=== PATIENT | male | born 1960 | race Two or more races ===

== ENCOUNTER 2018-01-09 03:32 | Inpatient (IN) | payer OTHER ==
[2018-01-08 20:00] VITALS: BP 138/71
[~2018-01-09] VITALS: Ht 165.1 cm; Wt 103.4 kg
--- NOTE | 2018-01-09 04:40 | NUR ---
RN M/S NOTE RECEIVED PATIENT FROM [facility], AOX3, SPEECH CLEAR, DENIES ANY RESPIRATORY OR CARDIAC DISTRESS. NPO, SKIN IS INTACT, RAC #18G PATENT FLUSHES WELL, SITE CDI. D5 1/2NS AT 75 ML/HR, TOLERATING WELL. BRP, INSTRUCTED SWITCHING OPERATOR LIGHT USE, SAFETY MAINTAINED AT ALL TIMES, BED IN LOCKED POSITION. WILL CONTINUE TO MONITOR FOR ANY CHANGES IN CONDITION.
[2018-01-09 04:58] VITALS: BP 123/72
[2018-01-09] MEDS ORDERED: MORPHINE SULFATE INJ 2 MG/ML DISP.SYRIN IV PRN (05:00)
[2018-01-09] MEDS ORDERED: ACETAMINOPHEN 325 MG TABLET PO PRN (05:00)
[2018-01-09] MEDS ORDERED: Z GUARD REMEDY 2 OZ OINT TP PRN (05:00)
[2018-01-09] MEDS ORDERED: ONDANSETRON HCL/PF 4 MG/2 ML VIAL IVP PRN (05:00)
[2018-01-09] MEDS: IV D5/0.45 NACL 1,000 ML IV SCH ×2 (05:31→18:49)
[2018-01-09 06:51] LABS: BASOPHILS # (AUTO) 0.1 /CMM (0.0-0.2); BASOPHILS % (AUTO) 0.8 % (0.0-2.0); EOSINOPHILS % (AUTO) 3.1 % (0.0-6.0); HEMATOCRIT 39 % (39-51); HEMOGLOBIN 13.4 g/dL (13.5-17.5); LYMPHOCYTES % (AUTO) 31.9 % (20.0-44.0); MEAN CORPUSCULAR HGB CONC 34 g/dl (31.0-36.0); MEAN CORPUSCULAR VOLUME 88 fL (80-96); MONOCYTES # (AUTO) 0.9 /CMM (0.1-1.30); MONOCYTES % (AUTO) 9.5 % (2.0-12.0); NEUTROPHILS # (AUTO) 5.1 /CMM (1.8-8.9); NEUTROPHILS % (AUTO) 54.7 % (43.0-81.0); PLATELET COUNT (AUTO) 200 /CMM (150-450); RDW COEFFICIENT OF VARIATION 13.4 (11.5-15.0); RED BLOOD CELL COUNT(AUTO) 4.43 MIL/uL (4.5-6.0); WHITE BLOOD COUNT (AUTO) 9.3 K/uL (4.3-11.0)
[2018-01-09 06:53] LABS: CALCIUM, SERUM 8.4 mg/dL (8.5-10.1); POTASSIUM 3.7 mmol/L (3.5-5.1)
--- NOTE | 2018-01-09 07:12 | NUR ---
RN INITIAL NOTES: REC'D PT ASLEEP ON BED, NOT IN ANY DISTRESS, A/O X 4, DENIES PAIN/DISCOMFORT AT THIS TIME. ON ROOM AIR, NO SOB. HAS IV LINE ACCESS: R AC G20 PL, PATENT & INTACT W/ NO S/SX OF INFECTION/INFILTRATION NOTED, W/ D5 1/2 NS X 75 CC/HR INFUSING WELL. PT ON NPO D/T DX. PROVIDED COMFORT & SAFETY MEASURES. BED KEPT LOW & IN LOCKED POS. CALL LIGHT PLACED W/IN REACH. WILL CONTINUE TO MONITOR & ATTEND PT NEEDS.
[2018-01-09 08:00] VITALS: BP 127/72
[2018-01-09] MEDS: PANTOPRAZOLE 40 MG VIAL IV SCH (08:21)
[2018-01-09] MEDS ORDERED: IOHEXOL-300 100 ML VIAL IV ONE (09:35)
[2018-01-09] MEDS ORDERED: CT SWABBABLE VALVE TRANS SET 1 EA INFUS.SET MC ONE (09:35)
[2018-01-09] MEDS ORDERED: IV NS 0.9% 250 ML IV ONE (09:36)
[2018-01-09 10:41] LABS: APPEARANCE,URINE CLEAR (CLEAR); BILIRUBIN,URINE NEGATIVE (NEGATIVE); BLOOD, URINE NEGATIVE Ery/uL (NEGATIVE); COLOR,URINE YELLOW (YELLOW); KETONES,URINE NEGATIVE (NEGATIVE); LEUKOCYTE ESTERASE ,URINE NEGATIVE (NEGATIVE); NITRITE, URINE NEGATIVE (NEGATIVE); PROTEIN,URINE NEGATIVE (NEGATIVE); UGLUCOSE NEGATIVE (NEGATIVE); UROBILINOGEN,URINE 0.2 EU/dL (0.2)
--- NOTE | 2018-01-09 11:30 | NUR ---
RN NOTES: TRUNG CORREIA INFORMED ABOUT GI CONSULT. PER GAS MASK ASSEMBLER, IT'S UNDER DR. MARLOW. DR. MARLOW MADE AWARE, HE SAID HE WILL SEE PT TODAY (PM). PT & FAMILY MADE AWARE.
--- NOTE | 2018-01-09 11:30 | NUR ---
RN NOTES: PT SEEN & EXAMINED BY TRUNG ARREAGA W/ ORDERS MAY START CLEAR LIQUID DIET FOR NOW.
[2018-01-09 16:00] VITALS: BP 128/80
--- NOTE | 2018-01-09 17:00 | NUR ---
RN NOTES: PT SEEN & EXAMINED BY DR. MARLOW W/ FF ORDERS: - PLS SECURE CONSENT FOR EGD/COLONOSCOPY. - GIVE MG CITRATE 8 OZ PO X1 NOW THEN AFTER 4 HOURS GIVE ANOTHER MG CITRATE 8 OZ PO X1. GIVE ALSO 20 MG OF BISACODYL PO. - KEEP CLEAR LIQUID DIET. NPO POST MN. WAS ABLE TO SPEAK W/ NRSG SUP JARON BUT UNSURE IF PROCEDURE WILL BE DONE TOMORROW OR MONDAY. MD TO CALL RN TO GIVE SCHEDULE OF THE PROCEDURE. PER , IF PROCEDURE IS SCHED AMANDA, GIVE GOLYTELY TONIGHT & KEEP PT NPO POST MN. IF SCHED ON , HOLD GOLYTELY BUT GIVE THE REST OF THE MEDS. PER NRSG SUP JARON, PROCEDURE IS SCHEDULE ON MONDAY. PT & MADE AWARE.
[2018-01-09] MEDS ORDERED: PEG 3350/NA SULF,BICARB,CL/KCL 4,000 ML BOTTLE PO ONE (17:30)
[2018-01-09] MEDS ORDERED: BISACODYL (5 MG) 5 MG TABLET.DR PO ONE (17:30)
[2018-01-09] MEDS ORDERED: MAGNESIUM CITRATE 296 ML BOTTLE PO ONE ×2 (17:30→21:30)
--- NOTE | 2018-01-09 19:00 | NUR ---
RN CLOSING NOTES: NO ACUTE CHANGES NOTED W/IN SHIFT. PT KEPT COMFORTABLE & WELL RESTED. NEEDS ATTENDED. IV LINE ON R AC G20 KEPT PATENT & INTACT W/ NO S/SX OF INFECTION/INFILTRATION NOTED, STILL ON D5 1/2 NS X 75 CC/HR INFUSING WELL. DR. MARLOW MADE AWARE THAT EGD/COLONOSCOPY IS SCHED ON TH. INFORMED HIM THAT MG CITRATE & BISACODYL ALREADY GIVEN. AGREED TO SCHED GOLYTELY AND 2ND BOTTLE OF MG CITRATE TOMORROW AT 4PM. KEEP PT ON CLEAR LIQUID DIET FOR NOW. PT MADE AWARE, CONSENT SIGNED AND PLACED IN THE CHART. ENDORSED TO PM RN FOR AMRKI.
[2018-01-09 19:59] LABS: OCCULT BLOOD STOOL POSITIVE (NEGATIVE)
[2018-01-09 20:51] VITALS: BP 147/89
[2018-01-10] VITALS: BP 138/71
[2018-01-10 04:00] VITALS: BP_SYST 112; BP_SYST 114; BP_SYST 138; BP_DIAS 71
[2018-01-10 06:26] LABS: BASOPHILS # (AUTO) 0.1 /CMM (0.0-0.2); BASOPHILS % (AUTO) 0.6 % (0.0-2.0); EOSINOPHILS % (AUTO) 4.3 % (0.0-6.0); HEMATOCRIT 40 % (39-51); HEMOGLOBIN 13.8 g/dL (13.5-17.5); LYMPHOCYTES # (AUTO) 2.4 /CMM (0.8-4.8); LYMPHOCYTES % (AUTO) 25.8 % (20.0-44.0); MEAN CORPUSCULAR HGB CONC 35 g/dl (31.0-36.0); MEAN CORPUSCULAR VOLUME 88 fL (80-96); MONOCYTES # (AUTO) 0.8 /CMM (0.1-1.30); MONOCYTES % (AUTO) 8.8 % (2.0-12.0); NEUTROPHILS # (AUTO) 5.7 /CMM (1.8-8.9); NEUTROPHILS % (AUTO) 60.5 % (43.0-81.0); PLATELET COUNT (AUTO) 208 /CMM (150-450); RDW COEFFICIENT OF VARIATION 12.7 (11.5-15.0); RED BLOOD CELL COUNT(AUTO) 4.52 MIL/uL (4.5-6.0); WHITE BLOOD COUNT (AUTO) 9.4 K/uL (4.3-11.0)
[2018-01-10 06:46] LABS: THYROID STIMULATING HORMONE 1.454 uIU/mL (0.358-3.74)
[2018-01-10] MEDS: IV D5/0.45 NACL 1,000 ML IV SCH ×2 (07:14→20:47)
--- NOTE | 2018-01-10 07:50 | NUR ---
MS RN OPENING NOTE PATIENT IS ALERT AND ORIENTED x3. NO PAIN NOTED. NO SOB OR DISTRESS NOTED. CALL LIGHT WITHIN REACH. SAFETY MEASURES IMPLEMENTED. ABLE TO COMMUNICATE NEEDS. IV INTACT AND PATENT NO REDNESS OR SWELLING NOTED, IV FLUIDS RUNNING AT THIS TIME AT 75 ML/HR TOLERATING WELL. WILL HAVE EGD/COLONOSCOPY TOMORROW 01/11 TO BE NPO AT MIDNIGHT AND BOWEL PREP TO BE STARTED TODAY. WILL CONTINUE TO MONITOR THROUGHOUT SHIFT
[2018-01-10 08:00] VITALS: BP 117/56
[2018-01-10] MEDS: PANTOPRAZOLE 40 MG VIAL IV SCH (08:55)
[2018-01-10 09:39] LABS: CALCIUM, SERUM 8.7 mg/dL (8.5-10.1); MAGNESIUM 2.2 mg/dL (1.8-2.4); PHOSPHORUS 3.7 mg/dL (2.5-4.9)
[2018-01-10 09:43] LABS: POTASSIUM 4.2 mmol/L (3.5-5.1)
[2018-01-10 12:00] VITALS: BP 142/82
[2018-01-10 16:00] VITALS: BP 133/65
[2018-01-10] MEDS ORDERED: MAGNESIUM CITRATE 296 ML BOTTLE PO ONE (16:00)
[2018-01-10] MEDS ORDERED: PEG 3350/NA SULF,BICARB,CL/KCL 4,000 ML BOTTLE PO ONE (16:00)
--- NOTE | 2018-01-10 18:38 | NUR ---
MS RN CLOSING NOTE PATIENT IS RESTING COMFORTABLY SITTING IN CHAIR. NO PAIN AT THIS TIME. NO SOB OR DISTRESS NOTED. CALL LIGHT WITHIN REACH AT ALL TIMES. SAFETY MEASURES IMPLEMENTED. ABLE TO COMMUNICATE NEEDS. TO BE NPO AT MIDNIGHT FOR EGD/COLONOSCOPY, CONSENTS OBTAINED AND PLACED IN CHART. PATIENT CURRENTLY DRINKING GOLYTELY AT THIS TIME. IV INTACT AND PATENT AND IV FLUIDS RUNNING AT THIS TIME TOLERATING WELL. WILL ENDORSE TO MANAGER PHP NURSE FOR AMRIK
--- NOTE | 2018-01-10 19:40 | NUR ---
RN INITIAL NOTES: RECEIVED REPORT FROM DAY HANNA WALTERS, PT A/O X4 DENIES ANY PAIN OR DISCOMFORT AT THIS TIME, PT ON BOWEL PREP CURRENTLY DRINKING GOLYTELY, IV ACCESS PATENT AND FLUSHING WELL, WITH ONGOING IVF INFUSING. PT FOR EGD AND COLONOSCOPY IN AM, CONSENT SECURED BY DAY RN. PT AWARE HE WILL BE NPO P MN. SAFETY PRECAUTIONS FOR FALL INITIATED CALL LIGHT IN REACH, WILL CONTINUE TO MONITOR
[2018-01-10 20:00] VITALS: BP 132/71
[2018-01-11 04:00] VITALS: BP 112/70
[2018-01-11] MEDS: IV D5/0.45 NACL 1,000 ML IV SCH (06:27)
--- NOTE | 2018-01-11 06:39 | NUR ---
RN CLOSING NOTES: PT IN BED, AWAKE, DENIES ANY PAIN OR DISCOMFORT AT THIS TIME, REMAINS NPO FOR EGD COLONOSCOPY TODAY, CONSENT AND CHECKLIST AVAILABLE AT CHART, IV ACCESS REMAINS PATENT AND FLUSHING WELL, INFUSING WITH D5 1/2NS AT 75ML/HR. BM NOW CLEAR, NO RESIDUE NOTED, BUT STILL YELLOWISH COLOR. PT NOT IN THE SCHEDULE FOR PROCEDURE TODAY HOWEVER PER SPEECH THERAPIST TECHNICIAN SHE TALKED TO NURSING SUP AND PER NURSING SUP, IN OR THEY MIGHT TRY TO "SQUEEZE HIM IN". WILL ENDORSE TO DAY RN TO PLEASE KINDLY FOLLOW UP WITH OR WHAT TIME WILL THE PT HAVE PROCEDURE BECAUSE ITS HIS 2ND DAY OF WAITING AND HAVING 2 BOWEL PREP DONE.. VS REMAINS STABLE, NEEDS ATTENDED. WILL ENDORSE TO DAY RN FOR AMRIK.
--- NOTE | 2018-01-11 06:51 | NUR ---
CONTACTED OR: CONTACTED OR RELAYED SITUATION ABOUT PT SCHEDULE FOR PROCEDURE, PER OR TECH HE STATED THAT DR MARLOW CALLED LAST NIGHT TO ADD THE PT ON THE CASE TODAY, PER OR TECH THAT THEY WILL ADD PT TO THE SCHEDULE TODAY AND WE'LL KEEP US UPDATED
--- NOTE | 2018-01-11 07:15 | NUR ---
MSRN OPENING NOTES. PT RECEIVED A&0X3, AWAKE AND RESTING. PT NPO R/T: GI INVESTIGATIONS. PT TOLERATING ROOM AIR WITHOUT SOB OR RESP DISTRESS. PT DENIES PAIN. PT REPORTS SMALL BMX1 THIS AM, BM ALL CLEAR LIQUID AND WITHOUT BLOOD. PT WITH IVC AT R FA G#20 INTACT AND OPERATIONAL. PT ENDORSED TO HAVE PROCEDURE TODAY, OR TO UPDATE WITH TIME ON SCHEDULE. PT BED IN LOWEST LOCKED POSITION WITH [id number] AND CALL HER WITHIN REACH. PT BRIEFED ON TODAY'S POC AND IS WITHOUT CONCERN OR COMPLAINT AT THIS TIME.
[2018-01-11 07:20] LABS: BASOPHILS # (AUTO) 0.1 /CMM (0.0-0.2); BASOPHILS % (AUTO) 0.6 % (0.0-2.0); EOSINOPHILS % (AUTO) 3.2 % (0.0-6.0); HEMATOCRIT 38 % (39-51); HEMOGLOBIN 13.3 g/dL (13.5-17.5); LYMPHOCYTES # (AUTO) 2.4 /CMM (0.8-4.8); LYMPHOCYTES % (AUTO) 26.4 % (20.0-44.0); MEAN CORPUSCULAR HGB CONC 35 g/dl (31.0-36.0); MEAN CORPUSCULAR VOLUME 87 fL (80-96); MONOCYTES # (AUTO) 0.9 /CMM (0.1-1.30); MONOCYTES % (AUTO) 9.4 % (2.0-12.0); NEUTROPHILS # (AUTO) 5.6 /CMM (1.8-8.9); NEUTROPHILS % (AUTO) 60.4 % (43.0-81.0); PLATELET COUNT (AUTO) 204 /CMM (150-450); RDW COEFFICIENT OF VARIATION 12.5 (11.5-15.0); RED BLOOD CELL COUNT(AUTO) 4.39 MIL/uL (4.5-6.0); WHITE BLOOD COUNT (AUTO) 9.3 K/uL (4.3-11.0)
[2018-01-11 07:26] LABS: INR 0.96 (0.87-1.13)
[2018-01-11] MEDS: PANTOPRAZOLE 40 MG VIAL IV SCH (08:46)
--- NOTE | 2018-01-11 11:00 | NUR ---
MSRN NOTES. PT TO OR FOR UPPER AND LOWER GI ENDOSCOPY.
[2018-01-11 12:00] VITALS: BP 120/75
--- NOTE | 2018-01-11 12:00 | NUR ---
MSRN NOTES. PT RETURNED A&0X3, TOLERATING ROOM AIR WITHOUT PAIN. VITALS Q15, WNL AT THIS TIME. MD ORDERS REVIEWED AND PLACED.
--- NOTE | 2018-01-11 16:30 | NUR ---
MSRN D/C NOTES. PT PREPARED FOR D/C PER MD. PT TOLERATING ROOM AIR WITHOUT RESPIRATORY DISTREE. PT DENIES PAIN. PT IVC REMOVED AND NAD AT SITE. PT WITH ALL BELONGINGS AND DOCUMENT SIGNED. PT BRIEFED ON SOH D/C PACKET, MEDICATIONS/SCRIPTS AND FOLLOW UPS WITH NUMBERS PROVIDED. PT VERBALIZING UNDERSTANDING, RESOURCES AND INTENT TO FOLLOW POC. PT ROOM CHECK AGAIN FOR BELONGINGS PRIOR TO EXIT. PT WITHOUT CONCERN OR COMPLAINT AT THIS TIME. AMBULATORY EXIT WITH FAMILY FOR TRANSPORT.
== END 2018-01-11 16:33 | disposition home or self-care (01) | DRG 241 ==
LOC: TELE-TD 04:34 → TELE1 04:56 → MEDSG1 06:04
PROVIDERS: ADMIT Registered Nurse; ATTEND Registered Nurse
PROC: 0DBL8ZZ Excision of Transverse Colon, Via Natural or Artificial Opening Endoscopic (ICD-10-PCS; principal; 2018-01-11 11:00)
PROC: 0DB98ZX Excision of Duodenum, Via Natural or Artificial Opening Endoscopic, Diagnostic (ICD-10-PCS; principal; 2018-01-11 11:00)
DX: K29.71 Gastritis, unspecified, with bleeding (principal); E88.81 Metabolic syndrome and other insulin resistance; E66.01 Morbid (severe) obesity due to excess calories; E11.9 Type 2 diabetes mellitus without complications; I70.8 Atherosclerosis of other arteries; K21.9 Gastro-esophageal reflux disease without esophagitis; E78.5 Hyperlipidemia, unspecified; Z68.36 Body mass index [BMI] 36.0-36.9, adult; K57.90 Diverticulosis of intestine, part unspecified, without perforation or abscess without bleeding; K64.8 Other hemorrhoids
CPT/HCPCS: 36415; 71045-TC; 74178; 80048-TC; 80061-TC; 81000-TC; 82272-TC; 82746; 82962-TC; 83540-TC; 83735-TC; 84100-TC; 84443-TC; 85025-TC; 85610-TC; 85730-TC; 86850-TC; 87081-TC; 88305-TC; 88313-TC; 88342; C9113; J2704; J3490; J7050; Q9967; Z7610